=== PATIENT | male | born 1990 | race Caucasian/White ===

== ENCOUNTER 2023-09-05 09:05 | Observation (INO) | payer BC, SELFPAY ==
[2023-09-05] VITALS (16 sets, daily range): BP systolic 90–122; BP diastolic 60–72; PULSE 99–110; RESP 16–25; TEMP 36.6–37.4; O2SAT 92–97; BMI 29.7; BMI 28.8
--- NOTE | 2023-09-05 09:12 | ECG_ITS ---
APPROVED REPORT Exam: Resting ECG HR:102 bpm ECG Measurements Heart Rate 102 AXES DC 180 P 56 QRSd 110 QRS -7 QT 350 T 71 QTc 409 Conclusion SINUS TACHYCARDIA NONSPECIFIC ST & T-WAVE ABNORMALITY ABNORMAL RHYTHM ECG UNCONFIRMED REPORT Electronically signed by : Fam Pearson MD 09/05/2023 17:01:26
[2023-09-05] MEDS: LACTATED RINGERS 1000ML 1,000 ML 999 ML IV ×2 (09:20→10:13)
--- NOTE | 2023-09-05 09:21 | ED_ITS ---
Discharge Plan Disposition Patient Disposition: Admitted Condition: Fair Prescriptions Prescriptions: No Action omeprazole 20 mg capsule,delayed release(DR/EC) 20 mg PO ONCE Referrals Follow up/Referrals: Niranjan Frazier [Primary Care Provider] - See instructions Clinical Impressions Clinical Impression: DKA (diabetic ketoacidosis), Syncope, Supratherapeutic INR, Shortness of teresa ath, Pneumonia Discharge ED Provider: Torrie Gomez General Adult HPI General Chief complaint: Weakness Stated complaint: weakness and soa Time Seen by Provider: 09/05/23 09:13 Mode of Arrival: Ambulatory Source of Information: Patient and Relative Limitations: No Limitations Description of Symptoms (Recalled from ER Triage Doc. by RN): pt states he had a +flu test on 09/02. pt c/o weakness, nonproductive cough, burning in his lungs when he coughs, and a syncopal episode last night. pt states when he stands up he feels like I'm going to pass out. pt has a hx of an artificial aortic heart valve and insulin dependent DM. pt is on coumadin and reports his INR was 7.3 yesterday. Pt states he is suppose to have it tested again today. History of Present Illness HPI narrative: This patient is a 32-year-old male with a history of insulin-dependent diabetes, aortic valve stenosis status post mechanical replacement, chronic anticoagulation on Coumadin presenting to the emergency department for evaluation with concern for syncope, lightheadedness, shortness of air, and feeling unwell in the setting of flu. He states that he first started feeling sick on 09/01, and on 09/02 he tested positive for the flu. Since then, he has had weakness, nonproductive cough, burning in his lungs when he coughs, and poor oral intake. He has been drinking a lot of water, but has not been able to eat very much. He also had a syncopal episode last night. He states when he stands up, he feels like he is going to pass out. He has noted mechanical aortic valve and he is always able to hear it taking, however is much louder and more pronounced now. No other concerns noted at this time. Related Data Home Medications Medication Instructions Recorded Confirmed omeprazole 20 mg capsule,delayed 20 mg PO ONCE 08/08/17 release Allergies Allergy/AdvReac Type Severity Reaction Status Date / Time codeine Allergy Mild Verified 11/25/17 16:02 PFSH PFSH Disclaimer: The information contained in this section may have been updated after the patient was seen, as this information can be updated by other users. Social History Smoking Status: Never smoker alcohol intake: never substance use type: denies use current occupational status: employed Travel in the last 8 weeks: None ROS Obtained: Yes All systems reviewed & no additional complaints except as documented Physical Exam General General appearance: alert and anxious Comment: Uncomfortable appearing Head Head exam: atraumatic and normocephalic Eye Eye exam: Present normal appearance, PERRL and EOMI ENT ENT exam: Present mucous membranes dry and normal external ear exam Neck Neck exam: Present normal inspection, full ROM and trachea midline; Absent tenderness Chest Chest inspection: Present normal inspection and symmetric chest wall rise; Absent tenderness Respiratory Respiratory exam: Present accessory muscle use, prolonged expiratory phase and other (Tachypneic); Absent respiratory distress, wheezes or stridor Cardiovascular Cardiovascular exam: Present normal rhythm, tachycardia and other (Audible clicking of his mechanical valve heard from across the room.) Abdominal Exam Abdominal exam: Present soft; Absent distention, tenderness or guarding Extremities Exam Extremities exam: Present normal inspection, full ROM and normal capillary refill; Absent tenderness or edema Back Exam Back exam: Present normal inspection and full ROM; Absent tenderness Neurological Exam Neurological exam: Present alert, oriented X3, CN II-XII intact and normal gait; Absent motor sensory deficit Psychiatric Psychiatric exam: Present anxious Skin Skin exam: Present warm and dry Medical Decision Making Medical Records Medical records reviewed: Yes I reviewed the patient's medical records. Rashaad Inquiry Pt receiving controlled substance: No Vital Signs: 09/05/23 09:16 09/05/23 10:00 09/05/23 10:30 Temperature 98.1 F Temperature Source Oral Pulse Rate 99 H 106 H Pulse Rate [Left] 102 H Respiratory Rate 16 Blood Pressure 108/69 L 107/71 L Blood Pressure [Right Arm] 122/70 Blood Pressure Mean 82 Blood Pressure Mean [Right Arm] 87 Blood Pressure Source [Right Arm] Automatic Cuff Blood Pressure Position [Right Arm] Sitting 02 Sat by Pulse Oximetry 96 96 93 L Oxygen Delivery Method Room Air 09/05/23 11:16 09/05/23 11:40 Temperature Temperature Source Pulse Rate 104 H 104 H Pulse Rate [Left] Respiratory Rate Blood Pressure 106/64 L 102/68 L Blood Pressure [Right Arm] Blood Pressure Mean Blood Pressure Mean [Right Arm] Blood Pressure Source [Right Arm] Blood Pressure Position [Right Arm] 02 Sat by Pulse Oximetry 95 95 Oxygen Delivery Method Room Air Room Air Lab Data Lab results reviewed: Yes I reviewed the patient's lab results. Lab Results 09/05/23 09:22: VBG pH 7.24 L, VBG pCO2 37.1, VBG pO2 26.8 L, VBG HCO3 15.6 L, VBG Total CO2 16.8 L, VBG O2 Saturation 52.6, VBG Base Excess -11.7 L 09/05/23 09:25: WBC 7.6, RBC 5.40, Hgb 16.5, Hct 47.8, MCV 88.5, MCH 30.5, MCHC 34.5, RDW 13.7, Plt Count 136 L, MPV 8.5, Neut % (Auto) 77.0, Lymph % (Auto) 16.2, [place]field % (Auto) 5.9, Eos % (Auto) 0.3, Baso % (Auto) 0.5, Neut # (Auto) 5.9, Lymph # (Auto) 1.2, [place] # (Auto) 0.5, Eos # (Auto) 0.0, Baso # (Auto) 0.0, PT 90.0 H, INR 8.00 H, D-Dimer 0.62 H, Sodium 135 L, Potassium 4.3, Chloride 100, Carbon Dioxide 17 L, Anion Gap 22.3 H, BUN 12, Creatinine 0.90, Estimated Creat Clear 170, Estimated GFR 98, Est GFR ( Amer) 118, Glucose 239 H, Lactate 3.3 H, Uric Acid 5.3, Calcium 9.2, Total Bilirubin 1.4 H, AST 34, ALT 35, Alkaline Phosphatase 74, Lactate Dehydrogenase 494, Troponin I < 0.01, NT-Pro-B Natriuret Pep 3730 H, Total Protein 7.5, Albumin 4.3, Globulin 3.2, Albumin/Globulin Ratio 1.3, TSH 1.94, Thyroxine (T4) 5.8, Acetone Level Small 09/05/23 12:30: Troponin I 0.01 09/05/23 09:25 09/05/23 09:25 Orders (Tests/Meds): ED MEDICATIONS Generic Name Dose Route Start Last Admin Trade Name Freq PRN Reason Stop Dose Admin Dextrose 50 ml 09/05/23 10:04 Dextrose 50% 50ml Syringe (Crash Cart) IVP 10/05/23 10:03 NEEDED PRN Per DKA Protocol Insulin Human Regular 100 unit 101 mls @ 10.308 mls/hr 09/05/23 10:15 09/05/23 12:56 / Sodium Chloride IV 10/05/23 10:14 0.02 units/kg/hr .Q9H48M ELDA 2.5 mls/hr Titration Protocol 0.1 UNITS/KG/HR Sodium Chloride 1,000 mls @ 150 mls/hr 09/05/23 10:15 Sod Chlor 0.9% 1000ml Bag IV 10/05/23 10:14 .Q6H40M ELDA Dextrose/Sodium Chloride 1,000 mls @ 75 mls/hr 09/05/23 10:15 09/05/23 12:44 Dextrose 5%-0.9% Nacl Iv Soln IV 10/05/23 10:14 75 mls/hr .[id number] ELDA Administration Dextrose/Sodium Chloride 1,000 mls @ 125 mls/hr 09/05/23 10:15 09/05/23 12:59 Dextrose 5%-0.9% Nacl Iv Soln IV 10/05/23 10:14 125 mls/hr .Q8H ELDA Administration Azithromycin 500 mg/ Sodium 250 mls @ 250 mls/hr 09/05/23 13:30 09/05/23 12:52 Chloride IV 09/05/23 14:29 250 mls/hr ONCE ONE Administration Vancomycin/PEG/NADA/Lysine/Water 1.75 gm in 350 mls @ 175 mls/hr 09/05/23 13:00 Vancomycin 1.75gm/350ml (Peg) Premix IV 09/15/23 12:59 Q8H ELDA Miscellaneous 1 each 09/05/23 12:15 Vancomycin Consult Request NOTAPPLIC 10/05/23 12:14 CONSULT PHARMACY ELDA Discontinued Medications Generic Name Dose Route Start Last Admin Trade Name Freq PRN Reason Stop Dose Admin Lactated Ringer's 1,000 mls @ 999 mls/hr 09/05/23 09:19 09/05/23 09:20 Lactated Ringer's 1000 Ml Bag IV 09/05/23 10:19 999 mls/hr .Q1H1M ONE Administration Lactated Ringer's 1,000 mls @ 999 mls/hr 09/05/23 10:03 09/05/23 10:13 Lactated Ringer's 1000 Ml Bag IV 09/05/23 11:03 999 mls/hr .Q1H1M ONE Administration Cefepime HCl 2 gm/ Sodium 100 mls @ 200 mls/hr 09/05/23 12:30 09/05/23 12:34 Chloride IV 09/05/23 12:59 200 mls/hr ONCE ONE Administration Iopamidol 70 ml 09/05/23 11:11 09/05/23 11:12 Iopamidol-370 (76%);100ml Bottle IV 09/05/23 11:12 70 ml ONCE ONE Administration Sodium Chloride 50 ml 09/05/23 11:11 09/05/23 11:12 0.9 % Sodium Chloride 50 Ml Vial IV 09/05/23 11:12 50 ml ONCE ONE Administration Sodium Chloride 10 ml 09/05/23 11:11 09/05/23 11:12 Sodium Chloride 0.9% 10ml Syr (Rad Only) IV 09/05/23 11:12 10 ml ONCE ONE Administration ORDERS Category Date Time Status CTA Chest [CT angio chest PE protocol] Stat Cat Scan 09/05/23 10:38 Completed Cardiology Consult [Consult to Cardiology] [CONS] Cons 09/05/23 10:23 Active Routine POCUS Point of Care (ER Only) Stat Exams 09/05/23 09:21 Completed XR chest portable Stat Exams 09/05/23 10:08 Completed Acetone, Serum (Rapid) Q12H Lab 09/05/23 22:15 Ordered Acetone, Serum (Rapid) Q12H Lab 09/06/23 10:15 Ordered Acetone, Serum (Rapid) Stat Lab 09/05/23 09:25 Completed Basic Metabolic Panel Q12H Lab 09/06/23 02:15 Ordered Basic Metabolic Panel Q12H Lab 09/06/23 14:15 Ordered Basic Metabolic Panel Q12H Lab 09/07/23 02:15 Ordered Basic Metabolic Panel Q4H Lab 09/05/23 14:15 Ordered Basic Metabolic Panel Q4H Lab 09/05/23 18:15 Ordered Basic Metabolic Panel Q4H Lab 09/05/23 22:15 Ordered Brain Natriuretic Peptide Stat Lab 09/05/23 09:25 Completed Complete Blood Count Auto Diff Stat Lab 09/05/23 09:25 Completed Comprehensive Metabolic Panel Stat Lab 09/05/23 09:25 Completed D-Dimer Stat Lab 09/05/23 09:25 Completed Lactate Dehydrogenase Stat Lab 09/05/23 09:25 Completed Lactic Acid Stat Lab 09/05/23 09:25 Completed Prothrombin Time INR Stat Lab 09/05/23 09:25 Completed T4 (Thyroxine) Stat Lab 09/05/23 09:25 Completed TSH [Thyroid Stimulating Hormone] Stat Lab 09/05/23 09:25 Completed Troponin I Q3H Lab 09/05/23 12:30 Completed Troponin I Q3H Lab 09/05/23 15:30 Ordered Troponin I Stat Lab 09/05/23 09:25 Completed Uric Acid Stat Lab 09/05/23 09:25 Completed Blood Culture Stat Micro 09/05/23 11:29 Received Venous Blood Gas Stat RT 09/05/23 09:22 Completed CA echo doppler complete Stat Y 09/05/23 10:13 Completed ECG initial Besson Routine Y 09/05/23 09:12 Completed ECG Data Tracing #1: I reviewed this ECG and interpreted as documented below: Sinus tachycardia with a ventricular rate of [address] changes concerning for ischemia at this time. Motion artifact noted. ECG initial impression date: 09/05/23 ECG initial impression time: 09:14 Medical Decision Narrative: In summary, this patient is a 32-year-old male presenting to the Emergency Department for evaluation of shortness of breath, lightheadedness, general weakness, and syncope in the setting of influenza. Differential diagnoses considered include but are not limited to viral syndrome, dehydration, pn eumonia, ACS, dysrhythmia, PE, pleurisy, pericarditis, myocarditis, respiratory failure, DKA, HHS. Ruling out the most morbid conditions drove assessment. On exam, the patient is slightly tachycardic with audible mechanical valve heard from across the room. He appears very dry with delayed capillary refill and dry mucous membranes. Workup included broad lab evaluation including infectious, metabolic, and cardiac workup. Chest x-ray and EKG were also obtained. EKG demonstrates mild sinus tachycardia without acute ST elevations concerning for ischemia. Bedside ultrasound performed that did not demonstrate any significant pericardial effusion. No gross wall motion abnormality. On repeat exam, patient has some improvement in his color after administration of a bolus of IV fluids. He has improvement in his capillary refill. His labs are concerning for DKA with metabolic acidosis and an elevated anion gap of 22. Potassium is greater than 4 and blood glucose is 239. He also has mildly elevated lactic acid of 3.3. Fluid with sedation is ongoing with a second liter bolus at this time. I do not feel the full sepsis bolus is indicated given obesity as well as history of cardiac dysfunction. He does have an elevated BNP which is 3700. No gross signs of volume overload on clinical exam. He has mildly elevated D-dimer, for which CT PE protocol was ordered. INR is 8 without obvious sources of bleeding. Will advise holding coumadin but no indication for vitamin K/reversal at this time. I called and had an interactive discussion with Dr. Bowen with cardiology and ordered a formal echocardiogram to evaluate valve functionality to determine whether or not the patient will be appropriate to keep here for management of simple DKA or if he would require transfer to [facility] facility with cardiothoracic surgery given his history of valve replacement. Cardiology is to evaluate the patient. I independently interpreted CT scan and x-ray prior to the radiologist read and noted concerns for pneumonia. Please see their read for final interpretation. Given that the patient is very ill-appearing with DKA and recent influenza which predisposes him to MRSA pneumonia, he was given IV vancomycin, cefepime, and azithromycin. Fluid resuscitation is ongoing at this time. DKA protocol was initiated, and patient was placed on insulin drip. He did require initiation of dextrose given that his blood sugar is not significantly elevated. Cardiology reviewed patient's echo and noted that there is no concern for valvular dysfunction at this time, so the patient can stay here. Given this, I had an interactive discussion with the hospitalist who admitted the patient for further evaluation and management. Procedures Limited Ultrasound Indication:: Limited cardiac ultrasound Indication: Shortness of breath, syncope Identified cardiac views: [-Cardiac parasternal long axis] [-Cardiac parasternal short axis] [-Cardiac apical four-chamber] [-Cardiac subxiphoid] Findings: [-Cardiac activity present -Gross wall motion normal -Pericardial effusion absent -Right heart strain absent] Impression: -[From above] Images were saved to permanent archive The study was technically adequate CPT: 62295 This study was performed by me, and I personally interpreted all images/videos. Based on my clinical judgement, these images were adequate and did not necessitate further imaging. Critical Care Critical Care Time Critical Care Time: Yes Attestation: On 09/05/23, the high probability of a clinically significant, sudden or life threatening deterioration of the following system(s) (cardiovascular, respiratory, immunologic, endocrine) required my full and direct attention, intervention and personal management. The time I documented below is in addition to time spent performing reported procedures but includes the following listed in this critical care notation. Total Time Total Critical Care Time: 45
[2023-09-05 09:43] LABS: Basophils % 0.5 % (0.1-2.0); Eosinophils % 0.3 % (0.1-12.0); Hematocrit 47.8 % (42.0-52.0); Hemoglobin 16.5 g/dL (14.1-18.0); Lymphocytes # 1.2 K/mm3 (0.7-4.5); Lymphocytes % 16.2 % (10-50); Mean Corpuscular HGB Conc 34.5 g/dL (31.8-35.4); Mean Corpuscular Hemoglobin 30.5 pg (27.0-31.2); Mean Corpuscular Volume 88.5 fl (80-94); Mean Platelet Volume 8.5 fl (7.4-10.4); Monocytes # 0.5 K/mm3 (0.1-1.0); Monocytes % 5.9 % (1.7-9.3); Neutrophils # 5.9 K/mm3 (1.8-7.8); Platelet Count 136 K/mm3 (142-424); Red Cell Distribution Width 13.7 % (11.5-17.5); White Blood Count 7.6 K/mm3 (4.8-10.8)
--- NOTE | 2023-09-05 09:43 | PC.NURSE ---
RESPIRATORY NOTIFIED OF VBG
[2023-09-05 09:49] LABS: VBG Base Excess -11.7 mmol/L (-2.4-2.3); VBG HCO3 15.6 mmol/L (23-30); VBG Oxygen Saturation 52.6 % (50-70); VBG PCO2 37.1 mmol/L (35-51); VBG PH 7.24 mmol/L (7.31-7.41); VBG PO2 26.8 mmol/L (28-40); VBG Total CO2 16.8 mmol/L (23-27)
[2023-09-05 09:49] LABS: Chloride 100 mmol/L (98-107); Potassium 4.3 mmoL/L (3.5-5.1); Sodium 135 mmol/L (136-145)
[2023-09-05 09:52] LABS: Alanine Aminotransferase 35 U/L (12-78); Albumin Level 4.3 g/dl (3.5-5.0); Albumin/Globulin Ratio 1.3 (1.1-1.8); Alkaline Phosphatase 74 U/L (38-126); Anion Gap 22.3 mEq/L (5-15); Aspartate Amino Transferase 34 U/L (17-59); Bilirubin,Total 1.4 mg/dl (0.2-1.3); Blood Urea Nitrogen 12 mg/dl (9-20); Calcium 9.2 mg/dl (8.4-10.2); Carbon Dioxide 17 mmol/L (22.0-30.0); Creatinine Clearance Estimated 170 mL/min (50-200); Estimated Glomerular Filt Rate 98 ml/min (>60); GFR (African American) 118 ML/MIN (>60); Globulin 3.2 g/dL (1.3-3.2); Glucose 239 mg/dl (74-100); Total Protein,Serum 7.5 g/dl (6.3-8.2)
--- NOTE | 2023-09-05 09:55 | PC.NURSE ---
DR PEREZ AT BEDSIDE WITH US
[2023-09-05 09:59] LABS: Lactic Acid 3.3 mmol/L (0.7-2.1)
[2023-09-05 10:02] LABS: NT Pro Brain Natriuretic Pep. 3730 pg/mL (0-125)
[2023-09-05 10:04] LABS: Troponin I < 0.01 ng/ml (0.00-0.034)
--- NOTE | 2023-09-05 10:08 | XR_ITS ---
FINAL REPORT CLINICAL HISTORY: SOA FINDINGS: There is a vague opacity in the periphery of the right mid lung, may represent pneumonia. There is no evidence of effusion or pneumothorax. Patient is status post median sternotomy. Heart size is normal. IMPRESSION: Vague opacity right mid lung. Reviewed, Interpreted and Dictated by Luke Haq MD Transcribed by Karol Griffith Authenticated and [facility]
[2023-09-05 10:09] LABS: T4 (Thyroxine) 5.8 ug/dl (5.53-11.0)
--- NOTE | 2023-09-05 10:13 | CA_ITS ---
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 160.0 (50-130 cm/s) AO Peak GR. 10.20 mmHg AO Mean GR. 5.10 (<5 mmHg) AO VTI 23.5 (18-25 cm) Mitral Valve MV A Velocity 56.0 (40-130 cm/s) E/A Ratio 1.37 Pulmonary Valve PV Peak Velocity 256.0 (50-150 cm/s) Tricuspid Valve TR P. Velocity 303.00 cm/s Left Ventricle The left ventricle is normal size. The left ventricular systolic function is normal. The left ventricular ejection fraction is within the normal range. There is normal left ventricular wall thickness. There is normal LV segmental wall motion. The left ventricular diastolic function is normal. LVEF is 60%. Right Ventricle Right ventricle is mildly dilated. The right ventricular systolic function is normal. Atria The left atrium size is normal. The right atrium size is normal. There is no Doppler evidence of interatrial shunt. Aortic Valve s/p mechanical AVR. The AVR leaflets are not very well visualized to assess mobility. Peak velocity 1.6 m/s. Mean AV gradient is 5 mmHg. Peak AV gradient 10 mmHg. Acceleeration time 45 ms. Trace aortic regurgitation. Mitral Valve The mitral valve is normal in structure. There is no mitral valve regurgitation noted. Tricuspid Valve The tricuspid valve leaflets are thin and pliable. Trace tricuspid regurgitation. There is insufficient TR jet to estimate RVSP. Pulmonic Valve The pulmonary valve is normal in structure. Trace pulmonic regurgitation. Great Vessels The aortic root is not well visualized. IVC is normal in size and collapses >50% with inspiration. Pericardium There is no pericardial effusion. Other Information Study Quality: Technically Difficult Conclusion Technically difficult study due to poor accoustic windows. Normal biventricular systolic function. Mild RV dilation. s/p mechanical AVR. The AVR prosthesis is not well visualized, but spectral Doppler demonstrates acceptable transaortic gradients and acceleration time. No significant valvular stenosis or regurgitation in remaining valves. Electronically signed by : Yessenia Dow MD 09/05/2023 14:44:05
--- NOTE | 2023-09-05 10:20 | PC.NURSE ---
Dr. Gomez speaking with Dr. Bowen
[2023-09-05 10:22] LABS: Thyroid Stimulating Hormone 1.94 uIU/mL (0.465-4.68)
[2023-09-05] MEDS: INSULIN REGULAR, HUMAN 100 UNIT in 0.9 % SODIUM CHLORIDE 100 ML 10.3100000000000005 UNIT IV (10:25)
[2023-09-05 10:29] LABS: D-Dimer 0.62 ug/mL (0.0-0.5)
[2023-09-05 10:30] LABS: Lactate Dehydrogenase 494 U/L (313-618); Uric Acid 5.3 mg/dl (3.5-8.5)
[2023-09-05 10:37] LABS: Acetone, Serum (Rapid) Small (None Detect)
--- NOTE | 2023-09-05 10:38 | CT_ITS ---
FINAL REPORT TECHNIQUE: Postcontrast axial images of the chest were performed in a CTA protocol. This study was performed with techniques to keep radiation doses as low as reasonably achievable, (ALARA). Individualized dose reduction technique using automated exposure control or adjustment of mA and/or kV according to the patient's size were employed. CLINICAL HISTORY: chest pain, SOA, syncope, elevated dimer FINDINGS: The heart is normal in size. No pleural or pericardial effusion is identified. The thoracic aorta is normal in caliber with no focal aneurysm or dissection identified. There is no filling defect to suggest pulmonary embolism. There is extensive airspace disease throughout the lungs consistent with multifocal pneumonia. There is bilateral lower lobe and right upper lobe involvement noted. There are a few mildly enlarged, nonspecific lymph nodes with the largest in the right paratracheal region measuring 26 x 11 mm. Limited imaging of the upper abdomen demonstrates hepatosplenomegaly. IMPRESSION: No evidence for PE on this exam. Extensive airspace disease suspicious for pneumonia. Nonspecific adenopathy and splenomegaly. Reviewed, Interpreted and Dictated by Luke Haq MD Transcribed by Angie Ignacio Authenticated and [facility]
--- NOTE | 2023-09-05 10:55 | PC.NURSE ---
FS 208
[2023-09-05] MEDS: 0.9 % SODIUM CHLORIDE 50 ML VIAL IV (11:12)
[2023-09-05] MEDS: IOPAMIDOL-370 (76%);100ML BOTTLE 70 ML IV (11:12)
[2023-09-05] MEDS: SODIUM CHLORIDE 0.9% 10ML SYR (RAD ONLY) 10 ML IV (11:12)
--- NOTE | 2023-09-05 11:30 | PC.NURSE ---
Second set of blood cultures drawn and sent to lab
--- NOTE | 2023-09-05 12:00 | PC.NURSE ---
Shira from clinical scientist called to advise Dr. Bowen felt no need to transfer pt and that pt could be admitted here. Dr. Gomez notified.
--- NOTE | 2023-09-05 12:20 | EXP.PHA.CONS ---
Pharmacy Consult Date: 09/05/23 Time: 12:20 Referring provider: DR. PEREZ Reason for Consult:: VANCOMYCIN DOSING Allergies Allergy/AdvReac Type Severity Reaction Status Date / Time codeine Allergy Mild Verified 11/25/17 16:02 Home Medications Medication Instructions Recorded Confirmed Type omeprazole 20 mg capsule,delayed 20 mg PO ONCE 08/08/17 History release New Prescriptions to Start Prescriptions: Height: 1.85 m Weight: 102.058 kg Laboratory Results:: Laboratory Results - last 24 hr 09/05/23 09:22: VBG pH 7.24 L, VBG pCO2 37.1, VBG pO2 26.8 L, VBG HCO3 15.6 L, VBG Total CO2 16.8 L, VBG O2 Saturation 52.6, VBG Base Excess -11.7 L 09/05/23 09:25: WBC 7.6, RBC 5.40, Hgb 16.5, Hct 47.8, MCV 88.5, MCH 30.5, MCHC 34.5, RDW 13.7, Plt Count 136 L, MPV 8.5, Neut % (Auto) 77.0, Lymph % (Auto) 16.2, [place] % (Auto) 5.9, Eos % (Auto) 0.3, Baso % (Auto) 0.5, Neut # (Auto) 5.9, Lymph # (Auto) 1.2, [place] # (Auto) 0.5, Eos # (Auto) 0.0, Baso # (Auto) 0.0, PT 90.0 H, INR 8.00 H, D-Dimer 0.62 H, Sodium 135 L, Potassium 4.3, Chloride 100, Carbon Dioxide 17 L, Anion Gap 22.3 H, BUN 12, Creatinine 0.90, Estimated Creat Clear 170, Estimated GFR 98, Est GFR ( Amer) 118, Glucose 239 H, Lactate 3.3 H, Uric Acid 5.3, Calcium 9.2, Total Bilirubin 1.4 H, AST 34, ALT 35, Alkaline Phosphatase 74, Lactate Dehydrogenase 494, Troponin I < 0.01, NT-Pro-B Natriuret Pep 3730 H, Total Protein 7.5, Albumin 4.3, Globulin 3.2, Albumin/Globulin Ratio 1.3, TSH 1.94, Thyroxine (T4) 5.8, Acetone Level Small Assessment and Plan Assessment and plan all Dx Assessment and Plan for all problems:: Pharmacokinetic dosing service Objective: Patient: Floor: Age: 32 yo Serum creatinine: 0.90 mg/dL Height: 73.0 Inches Weight (kg): 102.1 Assessment: IBW (kg): 79.90 Dosing wt(kg): 102.1 Estimated Creatinine clearance (ml/min): 130 Clearance limited to 130 ml/min to reduce risk of overdosing. CRCL method: Cockcroft and Gault using ibw(default). Drug selected: Vancomycin Loading dose (mg): Vd (liters): 81.7 (factor used: 0.8 L/kg) Simon (hr-1): 0.112 Half life (hrs): 6.19 CLvanco=?? 9.150 L/hr Recommended dose: 1750 mg Interval: 8 hrs Infusion time (hrs): 2.0 Predicted peak (mcg/mL): 32.4 Predicted trough (mcg/mL): 16.55 Total body weight is being used for vancomycin dosing. Recommendations: Give Vancomycin 1750 mg q 8 hrs with an expected Cpeak of 32.4 mcg/ml and an expected Ctrough of 16.55 mcg/ml AUC 0-24 /NICOLASA Data: NICOLASA 0.5 mcg/mL:?? AUC/NICOLASA:? 1147.5 NICOLASA 1.0 mcg/mL:?? AUC/NICOLASA:? 573.8 --------- NICOLASA 1.5 mcg/mL:?? AUC/NICOLASA:? 382.5 NICOLASA 2.0 mcg/mL:?? AUC/NICOLASA:? 286.9 Thank you for the consult, will continue to follow. -THAIS DOTSOND
--- NOTE | 2023-09-05 12:30 | PC.NURSE ---
call made to CM for bed assignment
[2023-09-05] MEDS: CEFEPIME HCL 2 GM in 0.9 % SODIUM CHLORIDE 100 ML IV (12:34)
--- NOTE | 2023-09-05 12:37 | PC.NURSE ---
second trop drawn and sent to LAB
[2023-09-05] MEDS: Dextrose 5 % and 0.9 % NaCl 1,000 ML 75 ML IV (12:44)
[2023-09-05] MEDS: AZITHROMYCIN 500 MG in 0.9 % SODIUM CHLORIDE 250 ML 250 MG IV (12:52)
[2023-09-05] MEDS: Dextrose 5 % and 0.9 % NaCl 1,000 ML 125 ML IV (12:59)
--- NOTE | 2023-09-05 13:01 | PC.NURSE ---
1259 D5 NS increased to 125 ml/hr
[2023-09-05] MEDS: 0.9 % SODIUM CHLORIDE 1000ML 1,000 ML 150 ML IV (13:02)
--- NOTE | 2023-09-05 13:03 | PC.NURSE ---
D5NS stopped. insulin drip maintained the same.
[2023-09-05 13:04] LABS: Troponin I 0.01 ng/ml (0.00-0.034)
[2023-09-05 13:37] LABS: Reflex Lactic Add Lactic Reflex
--- NOTE | 2023-09-05 13:45 | P.CONCA_ITS ---
History of Present Illness History of Present Illness Consult date: 09/05/23 Requesting physician: Kris Garcia Chief complaint: DKA, mechanical aortic valve Additional Medical History:: 1. Insulin-dependent diabetes mellitus, treated for several years A. DKA, 09/05/2023 related to pneumonia and recent flu illness 2. Congenital aortic stenosis A. For surgery at age 2 to 3 months B. Ross procedure at age 11 C. History of mechanical aortic valve placement as an adult D. Chronic Coumadin therapy E. Echocardiogram, 09/05/2023, normal EF with normally functioning mechanical aortic valve. History of present illness: In summary, this patient is a 32-year-old male presenting to the Emergency Department for evaluation of shortness of breath, lightheadedness, general weakness, and syncope in the setting of influenza. Differential diagnoses considered include but are not limited to viral syndrome, dehydration, pneumonia, ACS, dysrhythmia, PE, pleurisy, pericarditis, myocarditis, respiratory failure, DKA, HHS. Ruling out the most morbid conditions drove assessment. On exam, the patient is slightly tachycardic with audible mechanical valve heard from across the room. He appears very dry with delayed capillary refill and dry mucous membranes. Workup included broad lab evaluation including infectious, metabolic, and cardiac workup. Chest x-ray and EKG were also obtained. EKG demonstrates mild sinus tachycardia without acute ST elevations concerning for ischemia. Bedside ultrasound performed that did not demonstrate any significant pericardial effusion. No gross wall motion abnormality. On repeat exam, patient has some improvement in his color after administration of a bolus of IV fluids. He has improvement in his capillary refill. His labs are concerning for DKA with metabolic acidosis and an elevated anion gap of 22. Potassium is greater than 4 and blood glucose is 239. He also has mildly elevated lactic acid of 3.3. Fluid with sedation is ongoing with a second liter bolus at this time. I do not feel the full sepsis bolus is indicated given obesity as well as history of cardiac dysfunction. He does have an elevated BNP which is 3700. No gross signs of volume overload on clinical exam. He has mildly elevated D-dimer, for which CT PE protocol was ordered. INR is 8 without obvious sources of bleeding. Will advise holding coumadin but no indication for vitamin K/reversal at this time. I called and had an interactive discussion with Dr. Jessi with cardiology and ordered a formal echocardiogram to evaluate valve functionality to determine whether or not the patient will be appropriate to keep here for management of simple DKA or if he would require transfer to another facility with cardiothoracic surgery given his history of valve replacement. Cardiology is to evaluate the patient. I independently interpreted CT scan and x-ray prior to the radiologist read and noted concerns for pneumonia. Please see their read for final interpretation. Given that the patient is very ill-appearing with DKA and recent influenza which predisposes him to MRSA pneumonia, he was given IV vancomycin, cefepime, and azithromycin. Fluid resuscitation is ongoing at this time. DKA protocol was initiated, and patient was placed on insulin drip. He did require initiation of dextrose given that his blood sugar is not significantly elevated. Cardiology reviewed patient's echo and noted that there is no concern for valvular dysfunction at this time, so the patient can stay here. Given this, I had an interactive discussion with the hospitalist who admitted the patient for further evaluation and management. The above per Dr. Torrie Gomez, ER physician The above events confirmed with the patient. Denies any chest pain, pressure or tightness. Non-smoker and nondrinker. Cardiology consulted to evaluate aortic valve for possible need to transfer if abnormal functioning. Echocardiogram today reveals normal ejection fraction with normally functioning mechanical aortic valve. [facility] Disclaimer: The information contained in this section may have been updated after the patient was seen, as this information can be updated by other users. Medical History (Updated 09/05/23 @ 13:51 by Tifafnie Alberto RN) Diabetes 1.5, managed as type 2 Surgical History (Updated 09/05/23 @ 13:52 by Tiffanie Alberto RN) Heart valve replaced Social History (Updated 09/05/23 @ 13:52 by Tiffanie Alberto, PATSY) Smoking Status: Never smoker alcohol intake: never substance use type: denies use current occupational status: employed Travel in the last 8 weeks: None Exam Data for Last 24 hours Vital signs and Labs for Last 24 Hours: Temp Pulse Resp BP Pulse Ox O2 Del Method 98.1 F 104 H 16 102/68 L 95 Room Air 09/05/23 09:16 09/05/23 11:40 09/05/23 09:16 09/05/23 11:40 09/05/23 11:40 09/05/23 11:40 Laboratory Results - last 24 hr 09/05/23 09:22: VBG pH 7.24 L, VBG pCO2 37.1, VBG pO2 26.8 L, VBG HCO3 15.6 L, VBG Total CO2 16.8 L, VBG O2 Saturation 52.6, VBG Base Excess -11.7 L 09/05/23 09:25: WBC 7.6, RBC 5.40, Hgb 16.5, Hct 47.8, MCV 88.5, MCH 30.5, MCHC 34.5, RDW 13.7, Plt Count 136 L, MPV 8.5, Neut % (Auto) 77.0, Lymph % (Auto) 16.2, [place] % (Auto) 5.9, Eos % (Auto) 0.3, Baso % (Auto) 0.5, Neut # (Auto) 5.9, Lymph # (Auto) 1.2, [place] # (Auto) 0.5, Eos # (Auto) 0.0, Baso # (Auto) 0.0, PT 90.0 H, INR 8.00 H, D-Dimer 0.62 H, Sodium 135 L, Potassium 4.3, Chloride 100, Carbon Dioxide 17 L, Anion Gap 22.3 H, BUN 12, Creatinine 0.90, Estimated Creat Clear 170, Estimated GFR 98, Est GFR ( Amer) 118, Glucose 239 H, Lactate 3.3 H, Uric Acid 5.3, Calcium 9.2, Total Bilirubin 1.4 H, AST 34, ALT 35, [place] Phosphatase 74, Lactate Dehydrogenase 494, Troponin I < 0.01, NT-Pro-B Natriuret Pep 3730 H, Total Protein 7.5, Albumin 4.3, Globulin 3.2, Albumin/Globulin Ratio 1.3, TSH 1.94, Thyroxine (T4) 5.8, Acetone Level Small 09/05/23 12:30: Troponin I 0.01 I & O for Last 24 hours: Intake & Output 09/03/23 09/04/23 09/05/23 09/06/23 11:59 11:59 11:59 11:59 Intake Total 23.797 / 23.797 Balance 23.797 / 23.797 Weight 225 lb 225 lb Constitutional Constitutional: no acute distress *Routine Respiratory Exam Respiratory: Present rales and rhonchi *Routine Cardiovascular Exam Cardiovascular: Present RRR and click Meds Home Medications and Allergies Home Medications Medication Instructions Recorded Confirmed Type omeprazole 20 mg capsule,delayed 20 mg PO ONCE 08/08/17 History release New Prescriptions to Start Prescriptions: Allergies Allergy/AdvReac Type Severity Reaction Status Date / Time luisaine Allergy Mild Verified 11/25/17 16:02 Assessment and Plan *Assessment and plan (1) Pneumonia: Status: Acute Qualifiers: Laterality: bilateral Lung location: unspecified part of lung Pneumonia type: due to unspecified organism Qualified Code(s): J18.9 - Pneumonia, unspecified organism Category: Medical Code(s): J18.9 - Pneumonia, unspecified organism (2) Shortness of breath: Status: Acute Category: Medical Code(s): R06.02 - Shortness of breath (3) Supratherapeutic INR: Status: Acute Category: Medical Code(s): R79.1 - Abnormal coagulation profile (4) Syncope: Status: Acute Qualifiers: Syncope type: unspecified Qualified Code(s): R55 - Syncope and collapse Category: Medical Code(s): R55 - Syncope and collapse (5) DKA (diabetic ketoacidosis): Status: Acute Qualifiers: Diabetes mellitus complication detail: without coma Diabetes mellitus type: other specified (including AISHWARYA) Qualified Code(s): E13.10 - Other specified diabetes mellitus with ketoacidosis without coma Category: Medical Code(s): E11.10 - Type 2 diabetes mellitus with ketoacidosis without coma (6) Hx of mechanical aortic valve replacement: Status: Acute Category: Surgical Code(s): Z95.2 - Presence of prosthetic heart valve (7) History of Coumadin therapy: Status: Acute Category: Medical Code(s): Z92.29 - Personal history of other drug therapy Plan 1. Pneumonia with shortness of breath and positive flu -Treatment per hospitalist 2. Syncope -Likely related to coughing with vasovagal etiology -Monitor on telemetry for arrhythmias -Troponins normal with normal EF on echo 3. Mechanical aortic valve, functioning appropriately -Supratherapeutic INR with plans to hold Coumadin and allow INR to drift down -Restart Coumadin when INR around 4 with goal of 2.5/3.5 4. IDDM with DKA, small acetone level and lactate at 3.3 (quickly improved to normal) and anion gap 22.3 dropped to 13.9 quickly -Defer to hospital Nothing further to add at this time. Please call if needed.
[2023-09-05 13:51] LABS: Coronavirus 19, PCR Not Detected (NotDetected); Influenza A, PCR Not Detected (NotDetected)
[2023-09-05 13:55] LABS: Lactic Acid Follow Up (RFLX 1) 1.8 mmol/L (0.7-2.1)
--- NOTE | 2023-09-05 14:07 | PC.NURSE ---
arrived by w/c from ED
[2023-09-05 14:39] LABS: POC Glucose,Bedside 82 (70-110)
[2023-09-05 14:39] LABS: Influenza B, PCR Detected (NotDetected)
[2023-09-05 14:46] LABS: Chloride 103 mmol/L (98-107); Sodium 135 mmol/L (136-145)
[2023-09-05 14:47] LABS: Potassium 3.9 mmoL/L (3.5-5.1)
[2023-09-05 14:50] LABS: Anion Gap 13.9 mEq/L (5-15); Blood Urea Nitrogen 11 mg/dl (9-20); Calcium 8.9 mg/dl (8.4-10.2); Carbon Dioxide 22 mmol/L (22.0-30.0); Creatinine Clearance Estimated 219 mL/min (50-200); Estimated Glomerular Filt Rate 131 ml/min (>60); GFR (African American) 158 ML/MIN (>60); Glucose 88 mg/dl (74-100)
--- NOTE | 2023-09-05 15:02 | PC.NURSE ---
Addendum entered by Rika Bernal RN 09/05/23 19:38: fluids increased to 124 r/t fsbs 91 [id number] Original Note: 1429 fsbs 82. fluids containing dextrose restarted at this time
[2023-09-05 15:36] LABS: POC Glucose,Bedside 104 (70-110)
[2023-09-05 15:50] LABS: Troponin I < 0.01 ng/ml (0.00-0.034)
[2023-09-05] MEDS: VANCOMYCIN/WATER FOR INJ (PEG) 1.75 GM/350 ML PIGGYBACK IV ×2 (16:40→23:33)
[2023-09-05 16:52] LABS: POC Glucose,Bedside 112 (70-110)
[2023-09-05 17:55] LABS: POC Glucose,Bedside 94 (70-110)
[2023-09-05 18:33] LABS: POC Glucose,Bedside 91 (70-110)
--- NOTE | 2023-09-05 18:36 | P.HP_ITS ---
History of Present Illness *Admission Date: 09/05/23 *Reason for visit:: Not feeling well, syncope *History of present illness: Patient is a 32-year-old male with past medical history of mechanical heart valve on Coumadin, diabetes mellitus who presents to the hospital due to feeling weakness lethargy, fatigue. Patient mention he has been feeling weak for the past week, he has not been holding up with hydration, he also mentions his mouth is dry. He otherwise denied fevers chills nausea vomiting diarrhea constipation dysuria. He mentions he was recently diagnosed with flu infection. He also mentions he passed out last night, he felt dizzy before passing out. [facility] Disclaimer: The information contained in this section may have been updated after the patient was seen, as this information can be updated by other users. Medical History (Updated 09/05/23 @ 13:51 by Tiffanie Alberto, RN) Diabetes 1.5, managed as type 2 Surgical History (Updated 09/05/23 @ 13:52 by Tiffanie Alberto, RN) Heart valve replaced Social History (Updated 09/05/23 @ 13:52 by Tiffanie Alberto, RN) Smoking Status: Never smoker alcohol intake: never substance use type: denies use current occupational status: employed Travel in the last 8 weeks: None Review of Systems Review of Systems Review of systems (narrative): as per [facility] Meds Home Medications and Allergies Home Medications Medication Instructions Recorded Confirmed Type omeprazole 20 mg capsule,delayed 20 mg PO ONCE 08/08/17 09/05/23 History release aspirin 81 mg chewable tablet 81 mg PO DAILY 09/05/23 09/05/23 History blood sugar diagnostic (FreeStyle 09/05/23 09/05/23 History Lite Strips) buspirone 5 mg tablet 5 mg PO DAILY 09/05/23 09/05/23 History dapagliflozin propaned 5 2 tab PO DAILY 09/05/23 09/05/23 History mg-metformin ER 1,000 mg tablet, ext rel 24hr (Xigduo XR) magnesium oxide 400 mg (241.3 mg 400 mg PO DAILY 09/05/23 09/05/23 History magnesium) tablet metoprolol succinate 50 mg 50 mg PO DAILY 09/05/23 09/05/23 History tablet,extended release 24 hr oseltamivir 75 mg capsule 75 mg PO BID 09/05/23 09/05/23 History rosuvastatin 20 mg tablet 20 mg PO HS 09/05/23 09/05/23 History sertraline 100 mg tablet 100 mg PO DAILY 09/05/23 09/05/23 History warfarin 1 mg tablet 1 mg PO DAILY 09/05/23 09/05/23 History warfarin 10 mg tablet 16 mg PO DAILY 09/05/23 09/05/23 History New Prescriptions to Start Prescriptions: Allergies Allergy/AdvReac Type Severity Reaction Status Date / Time codeine Allergy Mild Verified 11/25/17 16:02 Exam Data for Last 24 hours Vital signs and Labs for Last 24 Hours: Temp Pulse Resp BP Pulse Ox O2 Del Method 99.3 F 100 H 18 97/62 L 97 Room Air 09/05/23 16:00 09/05/23 18:00 09/05/23 18:00 09/05/23 18:00 09/05/23 18:00 09/05/23 18:00 Laboratory Results - last 24 hr 09/05/23 09:22: VBG pH 7.24 L, VBG pCO2 37.1, VBG pO2 26.8 L, VBG HCO3 15.6 L, VBG Total CO2 16.8 L, VBG O2 Saturation 52.6, VBG Base Excess -11.7 L 09/05/23 09:25: WBC 7.6, RBC 5.40, Hgb 16.5, Hct 47.8, MCV 88.5, MCH 30.5, MCHC 34.5, RDW 13.7, Plt Count 136 L, MPV 8.5, Neut % (Auto) 77.0, Lymph % (Auto) 16.2, [place] % (Auto) 5.9, Eos % (Auto) 0.3, Baso % (Auto) 0.5, Neut # (Auto) 5.9, Lymph # (Auto) 1.2, [place] # (Auto) 0.5, Eos # (Auto) 0.0, Baso # (Auto) 0.0, PT 90.0 H, INR 8.00 H, D-Dimer 0.62 H, Sodium 135 L, Potassium 4.3, Chloride 100, Carbon Dioxide 17 L, Anion Gap 22.3 H, BUN 12, Creatinine 0.90, Estimated Creat Clear 170, Estimated GFR 98, Est GFR ( Amer) 118, Glucose 239 H, Lactate 3.3 H, Uric Acid 5.3, Calcium 9.2, Total Bilirubin 1.4 H, AST 34, ALT 35, Alkaline Phosphatase 74, Lactate Dehydrogenase 494, Troponin I < 0.01, NT-Pro-B Natriuret Pep 3730 H, Total Protein 7.5, Albumin 4.3, Globulin 3.2, Albumin/Globulin Ratio 1.3, TSH 1.94, Thyroxine (T4) 5.8, Acetone Level Small 09/05/23 12:30: Troponin I 0.01 09/05/23 13:40: Lactate 1.8 09/05/23 13:47: SARS-CoV-2 (PCR) Not detected, Influenza A Untype (PCR) Not detected, Influenza Type B (PCR) Detected A 09/05/23 14:29: POC Glucose 82 09/05/23 14:35: Sodium 135 L, Potassium 3.9, Chloride 103, Carbon Dioxide 22, Anion Gap 13.9, BUN 11, Creatinine 0.70 D, Estimated Creat Clear 219, Estimated GFR 131, Est GFR ( Amer) 158 D, Glucose 88 D, Calcium 8.9, Troponin I < 0.01 09/05/23 15:28: POC Glucose 104 09/05/23 16:36: POC Glucose 112 H 09/05/23 17:44: POC Glucose 94 09/05/23 18:24: POC Glucose 91 I & O for Last 24 hours: Intake & Output 09/02/23 09/03/23 09/04/23 09/05/23 23:59 23:59 23:59 23:59 Intake Total 245.631 / 245.631 Balance 245.631 / 245.631 Weight 98.571 kg Constitutional Constitutional: no acute distress *Routine HEENT Exam Head: Present normocephalic Eye: Present EOMI and PERRL ENT: Present mucous membranes moist *Routine Neck Exam Neck: Present supple; Absent lymphadenopathy *Routine Respiratory Exam Respiratory: Present CTA bilaterally *Routine Cardiovascular Exam Cardiovascular: Present RRR *Routine Abdominal Exam Abdominal: Present soft and normoactive bowel sounds; Absent tenderness *Routine Rectal Exam Rectal:: deferred *Routine Genitalia Exam Genitalia:: deferred *Routine Extremities Exam Extremities: Absent cyanosis, clubbing or edema *Routine Skin Exam Skin: Present warm; Absent rash *Routine Neurological Exam Neurological: Present alert and oriented X3 Assessment and Plan *Assessment and plan (1) DKA (diabetic ketoacidosis): Status: Acute Qualifiers: Diabetes mellitus complication detail: without coma Diabetes mellitus type: other specified (including AISHWARYA) Qualified Code(s): E13.10 - Other specified diabetes mellitus with ketoacidosis without coma Category: Medical Code(s): E11.10 - Type 2 diabetes mellitus with ketoacidosis without coma (2) Syncope: Status: Acute Qualifiers: Syncope type: unspecified Qualified Code(s): R55 - Syncope and collapse Category: Medical Code(s): R55 - Syncope and collapse (3) Supratherapeutic INR: Status: Acute Category: Medical Code(s): R79.1 - Abnormal coagulation profile (4) Shortness of breath: Status: Acute Category: Medical Code(s): R06.02 - Shortness of breath (5) Pneumonia: Status: Acute Qualifiers: Laterality: bilateral Lung location: unspecified part of lung Pneumonia type: due to unspecified organism Qualified Code(s): J18.9 - Pneumonia, unspecified organism Category: Medical Code(s): J18.9 - Pneumonia, unspecified organism (6) Hx of mechanical aortic valve replacement: Status: Acute Category: Surgical Code(s): Z95.2 - Presence of prosthetic heart valve (7) History of Coumadin therapy: Status: Acute Category: Medical Code(s): Z92.29 - Personal history of other drug therapy Plan Patient is a 32-year-old male with past medical history of mechanical heart valve on Coumadin, diabetes mellitus who presents to the hospital due to feeling weakness lethargy, fatigue. Patient mention he has been feeling weak for the past week, he has not been holding up with hydration, he also mentions his mouth is dry. He otherwise denied fevers chills nausea vomiting diarrhea constipation dysuria. He mentions he was recently diagnosed with flu infection. He also mentions he passed out last night, he felt dizzy before passing out. Assessment Diabetes ketoacidosis Syncope Shortness of breath likely secondary to influenza type B, suspect pneumonia Supratherapeutic INR History of mechanical heart valve on Coumadin Plan Start on IV insulin, IV fluids per DKA protocol Frequent monitoring of BMP Monitor and replace electrolytes Started on empirical antibiotics with azithromycin, Rocephin Hold warfarin, patient's current INR is 8.0 Cardiology was consulted Monitor on cardiac mixer operator vacuum pan salt and replace electrolytes Patient denied using alcohol/tobacco abuse, okay for water intake while on insulin DVT prophylaxis-supratherapeutic INR, Coumadin on hold
[2023-09-05] MEDS: SERTRALINE 100MG TABLET 100 MG PO (19:00)
[2023-09-05 19:09] LABS: POC Glucose,Bedside 99 (70-110)
[2023-09-05 19:56] LABS: Anion Gap 10.5 mEq/L (5-15); Blood Urea Nitrogen 11 mg/dl (9-20); Calcium 8.7 mg/dl (8.4-10.2); Carbon Dioxide 23 mmol/L (22.0-30.0); Chloride 104 mmol/L (98-107); Creatinine Clearance Estimated 211 mL/min (50-200); Estimated Glomerular Filt Rate 131 ml/min (>60); GFR (African American) 158 ML/MIN (>60); Glucose 95 mg/dl (74-100); Potassium 3.5 mmoL/L (3.5-5.1); Sodium 134 mmol/L (136-145)
[2023-09-05 20:07] LABS: POC Glucose,Bedside 104 (70-110)
[2023-09-05] MEDS: OSELTAMIVIR 75MG CAPSULE 75 MG PO (20:51)
[2023-09-05] MEDS: METOPROLOL SUCCINATE XL 50MG TABLET 50 MG PO (20:51)
[2023-09-05] MEDS: BUSPIRONE HCL 5 MG TABLET PO (21:11)
[2023-09-05] MEDS: MAGNESIUM OXIDE 400MG TABLET 400 MG PO (21:11)
[2023-09-05] MEDS: PANTOPRAZOLE 40MG TABLET 40 MG PO (21:11)
[2023-09-05 22:49] LABS: Acetone, Serum (Rapid) Moderate (None Detect)
--- NOTE | 2023-09-05 23:04 | PC.NURSE ---
ROUNDED ON PT AT 200. PT REFUSED BATH, GAVE PT SNACKS.
[2023-09-05 23:44] LABS: POC Glucose,Bedside 153 (70-110)
[2023-09-06] VITALS (7 sets, daily range): BP systolic 103–118; BP diastolic 57–67; PULSE 90–110; RESP 17; TEMP 36.7–37.3; O2SAT 91–97; BMI 29.7
--- NOTE | 2023-09-06 05:19 | PC.NURSE ---
pt has had a great night. Patient has ate and drank with no nausea. Patient has not complained of pain or dizziness this shift. No other issues this shift
[2023-09-06] MEDS: humaLOG 100 UNITS/ML 3ML VIAL (SSI) SQ ×2 (05:47→12:05)
[2023-09-06 05:53] LABS: POC Glucose,Bedside 152 (70-110)
[2023-09-06 07:18] LABS: Potassium 3.5 mmoL/L (3.5-5.1); Sodium 133 mmol/L (136-145)
[2023-09-06 07:19] LABS: Chloride 103 mmol/L (98-107)
[2023-09-06 07:21] LABS: Anion Gap 14.5 mEq/L (5-15); Blood Urea Nitrogen 12 mg/dl (9-20); Carbon Dioxide 19 mmol/L (22.0-30.0); Creatinine Clearance Estimated 218 mL/min (50-200); Estimated Glomerular Filt Rate 131 ml/min (>60); GFR (African American) 158 ML/MIN (>60)
[2023-09-06 07:22] LABS: Calcium 8.4 mg/dl (8.4-10.2); Glucose 133 mg/dl (74-100)
[2023-09-06 07:59] LABS: INR 7.53 (0.9-1.1); Prothrombin Time 71.3 seconds (10.1-12.5)
[2023-09-06] MEDS: MAGNESIUM OXIDE 400MG TABLET 400 MG PO (10:00)
[2023-09-06] MEDS: OSELTAMIVIR 75MG CAPSULE 75 MG PO ×2 (10:00→20:29)
[2023-09-06] MEDS: BUSPIRONE HCL 5 MG TABLET PO (10:01)
[2023-09-06] MEDS: SERTRALINE 100MG TABLET 100 MG PO (10:01)
[2023-09-06] MEDS: METFORMIN 500MG TABLET 1000 MG PO ×2 (11:58→17:06)
[2023-09-06] MEDS: INSULIN GLARGINE 100 UNITS/ML 3ML FLEXPEN 30 UNIT SQ ×2 (11:58→20:30)
[2023-09-06] MEDS: ASPIRIN 81MG CHEWABLE TABLET 81 MG PO (11:58)
[2023-09-06 12:10] LABS: POC Glucose,Bedside 175 (70-110)
--- NOTE | 2023-09-06 12:38 | PC.NURSE ---
[address] Garcia face to face that pt called out for assistance reporting a nose bleed. pt currently has tissues in nostril applying pressure. nno
--- NOTE | 2023-09-06 13:47 | HMH.PHAINT1 ---
Pharmacy Intervention Comments: MEDICATION RECONCILIATION COMPLETED ON PATIENT USING EXTERNAL FILL HISTORY FROM PHARMACY. -NATHAN ROD, THAISD
[2023-09-06 14:24] LABS: Chloride 104 mmol/L (98-107); Potassium 3.4 mmoL/L (3.5-5.1); Sodium 133 mmol/L (136-145)
[2023-09-06 14:27] LABS: Anion Gap 11.4 mEq/L (5-15); Blood Urea Nitrogen 12 mg/dl (9-20); Calcium 8.4 mg/dl (8.4-10.2); Carbon Dioxide 21 mmol/L (22.0-30.0); Creatinine Clearance Estimated 254 mL/min (50-200); Estimated Glomerular Filt Rate 156 ml/min (>60); GFR (African American) 189 ML/MIN (>60); Glucose 151 mg/dl (74-100)
[2023-09-06 17:17] LABS: POC Glucose,Bedside 120 (70-110)
--- NOTE | 2023-09-06 17:41 | PC.NURSE ---
Pt is a/o x 4 and is resting in his room at this time using his cell phone. pt was able to ambulate to shower prior to lunch and was able to take a shower. lung sounds at this time have crackles in jessica bases and slightly diminished in the right lung. bowel sounds are active in all quads. pt had a nose bleed at lunch time which resolved without intervention. md notified of start and stop of bleeding. nad noted. pt has family at bedside at this time. Toan in pharmacy spoke with md about restarting abx for pt pneumonia as pt dc was delayed. abx not reordered at this time.
--- NOTE | 2023-09-06 18:06 | EXP.PN ---
Subjective *Date: 09/06/23 *Time: 18:06 Interval history: patient was seen and evaluated at the bedside. No reported acute events overnight, denies chest pain, shortness of breath, nausea, vomiting, abdominal pain. Exam Data for Last 24 hours Vital signs and Labs for Last 24 Hours: Temp Pulse Resp BP Pulse Ox O2 Del Method 98.3 F 94 H 17 118/67 97 Room Air 09/06/23 15:23 09/06/23 15:23 09/06/23 15:23 09/06/23 15:23 09/06/23 15:23 09/06/23 17:07 Laboratory Results - last 24 hr 09/05/23 18:24: POC Glucose 91 09/05/23 18:25: Sodium 134 L, Potassium 3.5, Chloride 104, Carbon Dioxide 23, Anion Gap 10.5, BUN 11, Creatinine 0.70, Estimated Creat Clear 211, Estimated GFR 131, Est GFR ( Amer) 158, Glucose 95, Calcium 8.7 09/05/23 18:57: POC Glucose 99 09/05/23 20:00: POC Glucose 104 09/05/23 22:14: Acetone Level Moderate 09/05/23 23:37: POC Glucose 153 H 09/06/23 05:43: POC Glucose 152 H 09/06/23 06:21: PT 71.3 H, INR 7.53 H, Sodium 133 L, Potassium 3.5, Chloride 103, Carbon Dioxide 19 L, Anion Gap 14.5, BUN 12, Creatinine 0.70, Estimated Creat Clear 218, Estimated GFR 131, Est GFR ( Amer) 158, Glucose 133 H D, Calcium 8.4 09/06/23 11:59: POC Glucose 175 H 09/06/23 14:09: Sodium 133 L, Potassium 3.4 L, Chloride 104, Carbon Dioxide 21 L, Anion Gap 11.4, BUN 12, Creatinine 0.60 L, Estimated Creat Clear 254, Estimated GFR 156, Est GFR ( Amer) 189, Glucose 151 H, Calcium 8.4 09/06/23 17:07: POC Glucose 120 H I & O for Last 24 hours: Intake & Output 09/03/23 09/04/23 09/05/23 09/06/23 23:59 23:59 23:59 23:59 Intake Total 598.631 / 5099.961 7571 / 1370 Output Total 450 / 950 1200 / 1200 Balance 148.631 / 298.631 170 / 170 Weight 98.571 kg 101.741 kg Constitutional Constitutional: no acute distress *Routine HEENT Exam Head: Present normocephalic Eye: Present EOMI and PERRL ENT: Present mucous membranes moist *Routine Neck Exam Neck: Present supple; Absent lymphadenopathy *Routine Respiratory Exam Respiratory: Present CTA bilaterally *Routine Cardiovascular Exam Cardiovascular: Present RRR *Routine Abdominal Exam Abdominal: Present soft and normoactive bowel sounds; Absent tenderness *Routine Extremities Exam Extremities: Absent cyanosis, clubbing or edema *Routine Skin Exam Skin: Present warm; Absent rash *Routine Neurological Exam Neurological: Present alert and oriented X3 Assessment and Plan *Assessment and plan (1) DKA (diabetic ketoacidosis): Status: Acute Qualifiers: Diabetes mellitus complication detail: without coma Diabetes mellitus type: other specified (including AISHWARYA) Qualified Code(s): E13.10 - Other specified diabetes mellitus with ketoacidosis without coma Category: Medical Code(s): E11.10 - Type 2 diabetes mellitus with ketoacidosis without coma (2) Syncope: Status: Acute Qualifiers: Syncope type: unspecified Qualified Code(s): R55 - Syncope and collapse Category: Medical Code(s): R55 - Syncope and collapse (3) Supratherapeutic INR: Status: Acute Category: Medical Code(s): R79.1 - Abnormal coagulation profile (4) Shortness of breath: Status: Acute Category: Medical Code(s): R06.02 - Shortness of breath (5) Pneumonia: Status: Acute Qualifiers: Laterality: bilateral Lung location: unspecified part of lung Pneumonia type: due to unspecified organism Qualified Code(s): J18.9 - Pneumonia, unspecified organism Category: Medical Code(s): J18.9 - Pneumonia, unspecified organism (6) Hx of mechanical aortic valve replacement: Status: Acute Category: Surgical Code(s): Z95.2 - Presence of prosthetic heart valve (7) History of Coumadin therapy: Status: Acute Category: Medical Code(s): Z92.29 - Personal history of other drug therapy Plan Patient is a 32-year-old male with past medical history of mechanical heart valve on Coumadin, diabetes mellitus who presents to the hospital due to feeling weakness lethargy, fatigue. Patient mention he has been feeling weak for the past week, he has not been holding up with hydration, he also mentions his mouth is dry. He otherwise denied fevers chills nausea vomiting diarrhea constipation dysuria. He mentions he was recently diagnosed with flu infection. He also mentions he passed out last night, he felt dizzy before passing out. Assessment Diabetes ketoacidosis - improved Syncope Shortness of breath likely secondary to influenza type B, suspect pneumonia Supratherapeutic INR History of mechanical heart valve on Coumadin Plan ok to start Diet Frequent monitoring of BMP Monitor and replace electrolytes Started on empirical antibiotics with azithromycin, Rocephin Hold warfarin, patient's current INR is 8.0, monitor INR, he had nasal bleed, monitor inpatient for CBC monitoring Cardiology was consulted Monitor on cardiac wafer slicer and replace electrolytes Patient denied using alcohol/tobacco abuse, okay for water intake while on insulin DVT prophylaxis-supratherapeutic INR, Coumadin on hold
[2023-09-06 19:06] LABS: Chloride 94 mmol/L (98-107); Sodium 121 mmol/L (136-145)
[2023-09-06 19:07] LABS: Potassium 3.7 mmoL/L (3.5-5.1)
[2023-09-06 19:09] LABS: Blood Urea Nitrogen 4 mg/dl (9-20); Creatinine Clearance Estimated 218 mL/min (50-200); Estimated Glomerular Filt Rate 131 ml/min (>60); GFR (African American) 158 ML/MIN (>60)
[2023-09-06 19:10] LABS: Anion Gap 4.7 mEq/L (5-15); Calcium 7.1 mg/dl (8.4-10.2); Carbon Dioxide 26 mmol/L (22.0-30.0); Glucose 122 mg/dl (74-100)
[2023-09-06] MEDS: PANTOPRAZOLE 40MG TABLET 40 MG PO (20:29)
[2023-09-06] MEDS: ATORVASTATIN 40MG TABLET 40 MG PO (20:29)
[2023-09-06] MEDS: METOPROLOL SUCCINATE XL 50MG TABLET 50 MG PO (20:29)
[2023-09-06] MEDS: BENZONATATE 100MG CAPSULE 100 MG PO (20:35)
[2023-09-06 20:40] LABS: POC Glucose,Bedside 143 (70-110)
[2023-09-07] VITALS: BP 120/70; PULSE 96; RESP 18; TEMP 36.8; O2SAT 90
[2023-09-07 02:21] LABS: Anion Gap 9.1 mEq/L (5-15); Blood Urea Nitrogen 11 mg/dl (9-20); Calcium 8.2 mg/dl (8.4-10.2); Carbon Dioxide 25 mmol/L (22.0-30.0); Chloride 104 mmol/L (98-107); Creatinine Clearance Estimated 305 mL/min (50-200); Estimated Glomerular Filt Rate 193 ml/min (>60); GFR (African American) 233 ML/MIN (>60); Glucose 100 mg/dl (74-100); Potassium 3.1 mmoL/L (3.5-5.1); Sodium 135 mmol/L (136-145)
[2023-09-07 04:00] VITALS: BP 116/67; PULSE 89; RESP 17; TEMP 37.2; O2SAT 90; BMI 29.3
--- NOTE | 2023-09-07 05:31 | PC.NURSE ---
Patient has had a good shift. Has been able to rest. Did have one more small nosebleed before bed but has not had any more through the night. That nose bleed lasted 2min. with no significant loss of blood. Patient did complain of cough early in the shift. FLIGHT INSTRUCTOR notified and orders were placed. No other issues noted
[2023-09-07] MEDS: METFORMIN 500MG TABLET 1000 MG PO (06:36)
[2023-09-07 07:09] LABS: Basophils # 0.1 K/mm3 (0-0.2); Basophils % 0.8 % (0.1-2.0); Eosinophils % 0.5 % (0.1-12.0); Hematocrit 34.7 % (42.0-52.0); Hemoglobin 12.7 g/dL (14.1-18.0); Lymphocytes # 1.7 K/mm3 (0.7-4.5); Lymphocytes % 20.5 % (10-50); Mean Corpuscular HGB Conc 36.5 g/dL (31.8-35.4); Mean Corpuscular Hemoglobin 30.6 pg (27.0-31.2); Mean Corpuscular Volume 83.9 fl (80-94); Mean Platelet Volume 8.9 fl (7.4-10.4); Monocytes # 0.5 K/mm3 (0.1-1.0); Monocytes % 6.2 % (1.7-9.3); Neutrophils # 5.9 K/mm3 (1.8-7.8); Platelet Count 155 K/mm3 (142-424); Red Blood Count 4.13 M/mm3 (4.60-6.20); Red Cell Distribution Width 13.2 % (11.5-17.5); White Blood Count 8.2 K/mm3 (4.8-10.8)
[2023-09-07 07:10] LABS: Chloride 103 mmol/L (98-107); Potassium 3.1 mmoL/L (3.5-5.1); Sodium 134 mmol/L (136-145)
[2023-09-07 07:13] LABS: Blood Urea Nitrogen 13 mg/dl (9-20); Creatinine Clearance Estimated 376 mL/min (50-200); Estimated Glomerular Filt Rate 249 ml/min (>60); GFR (African American) 302 ML/MIN (>60); INR 2.53 (0.9-1.1); Prothrombin Time 25.7 seconds (10.1-12.5)
[2023-09-07 07:14] LABS: Anion Gap 9.1 mEq/L (5-15); Calcium 8.1 mg/dl (8.4-10.2); Carbon Dioxide 25 mmol/L (22.0-30.0); Glucose 99 mg/dl (74-100)
[2023-09-07 07:27] VITALS: BP 94/51; PULSE 89; RESP 18; TEMP 36.8; O2SAT 92
[2023-09-07] MEDS: ASPIRIN 81MG CHEWABLE TABLET 81 MG PO (09:02)
[2023-09-07] MEDS: BUSPIRONE HCL 5 MG TABLET PO (09:02)
[2023-09-07] MEDS: MAGNESIUM OXIDE 400MG TABLET 400 MG PO (09:02)
[2023-09-07] MEDS: OSELTAMIVIR 75MG CAPSULE 75 MG PO (09:02)
[2023-09-07] MEDS: DAPAGLIFLOZIN PROPANEDIOL 10 MG TABLET PO (09:02)
[2023-09-07] MEDS: INSULIN GLARGINE 100 UNITS/ML 3ML FLEXPEN 30 UNIT SQ (09:03)
[2023-09-07] MEDS: SERTRALINE 100MG TABLET 100 MG PO (09:03)
--- NOTE | 2023-09-07 10:08 | P.DS_ITS ---
General Admission date:: 09/05/23 Discharge date: 09/07/23 HPI HPI HPI: Patient is a 32-year-old male with past medical history of mechanical heart valve on Coumadin, diabetes mellitus who presents to the hospital due to feeling weakness lethargy, fatigue. Patient mention he has been feeling weak for the past week, he has not been holding up with hydration, he also mentions his mouth is dry. He otherwise denied fevers chills nausea vomiting diarrhea constipation dysuria. He mentions he was recently diagnosed with flu infection. He also mentions he passed out last night, he felt dizzy before passing out. Hospital Course Hospital Course Hospital Course: Patient was seen and evaluated at the bedside on the day of discharge. Patient is stable for discharge. Patient wishes to be discharged. All patient questions were answered and patient was given time to ask questions. Patient was discharged in stable condition. Patient understands that she can return to ER in case of any sudden changes in health. Total time spent on DC - 38 mins Patient is a 32-year-old male with past medical history of mechanical heart valve on Coumadin, diabetes mellitus who presents to the hospital due to feeling weakness lethargy, fatigue. Patient mention he has been feeling weak for the past week, he has not been holding up with hydration, he also mentions his mouth is dry. He otherwise denied fevers chills nausea vomiting diarrhea constipation dysuria. He mentions he was recently diagnosed with flu infection. He also mentions he passed out last night, he felt dizzy before passing out. Assessment Diabetes ketoacidosis - improved Syncope Shortness of breath likely secondary to influenza type B, suspect pneumonia Supratherapeutic INR History of mechanical heart valve on Coumadin stable for discharge, pulmonary opacities are most likely from Influenza B. continue tamiflue at DC Exam Data for Last 24 hours Vital signs and Labs for Last 24 Hours: Temp Pulse Resp BP Pulse Ox O2 Del Method 98.3 F 89 18 94/51 L 92 L Room Air 09/07/23 07:27 09/07/23 07:27 09/07/23 07:27 09/07/23 07:27 09/07/23 07:27 09/07/23 08:36 Laboratory Results - last 24 hr 09/06/23 11:59: POC Glucose 175 H 09/06/23 14:09: Sodium 133 L, Potassium 3.4 L, Chloride 104, Carbon Dioxide 21 L , Anion Gap 11.4, BUN 12, Creatinine 0.60 L, Estimated Creat Clear 254, Estimated GFR 156, Est GFR ( Amer) 189, Glucose 151 H, Calcium 8.4 09/06/23 17:07: POC Glucose 120 H 09/06/23 18:30: Sodium 121 L, Potassium 3.7, Chloride 94 L, Carbon Dioxide 26, Anion Gap 4.7 L, BUN 4 L D, Creatinine 0.70, Estimated Creat Clear 218, Estimated GFR 131, Est GFR ( Amer) 158, Glucose 122 H, Calcium 7.1 L 09/06/23 20:31: POC Glucose 143 H 09/07/23 02:05: Sodium 135 L, Potassium 3.1 L, Chloride 104, Carbon Dioxide 25, Anion Gap 9.1, BUN 11 D, Creatinine 0.50 L D, Estimated Creat Clear 305 H, Estimated GFR 193, Est GFR ( Amer) 233 D, Glucose 100, Calcium 8.2 L 09/07/23 06:15: WBC 8.2, RBC 4.13 L, Hgb 12.7 L, Hct 34.7 L, MCV 83.9, MCH 30.6, MCHC 36.5 H, RDW 13.2, Plt Count 155, MPV 8.9, Neut % (Auto) 72.0, Lymph % (Auto) 20.5, [place] % (Auto) 6.2, Eos % (Auto) 0.5, Baso % (Auto) 0.8, Neut # (Auto) 5.9, Lymph # (Auto) 1.7, [place] # (Auto) 0.5, Eos # (Auto) 0.0, Baso # (Auto) 0.1, PT 25.7 H, INR 2.53 H, Sodium 134 L, Potassium 3.1 L, Chloride 103, Carbon Dioxide 25, Anion Gap 9.1, BUN 13, Creatinine 0.40 L, Estimated Creat Clear 376 H, Estimated GFR 249, Est GFR ( Amer) 302 D, Glucose 99, Calcium 8.1 L I & O for Last 24 hours: Intake & Output 09/04/23 09/05/23 09/06/23 09/07/23 23:59 23:59 23:59 23:59 Intake Total 598.631 / 5240.301 0669 / 1870 740 / 740 Output Total 450 / 950 1200 / 1200 0 / 0 Balance 148.631 / 298.631 170 / 670 740 / 740 Weight 98.571 kg 101.741 kg 100.38 kg Constitutional Constitutional: no acute distress *Routine HEENT Exam Head: Present normocephalic Eye: Present EOMI and PERRL ENT: Present mucous membranes moist *Routine Neck Exam Neck: Present supple; Absent lymphadenopathy *Routine Respiratory Exam Respiratory: Present CTA bilaterally *Routine Cardiovascular Exam Cardiovascular: Present RRR *Routine Abdominal Exam Abdominal: Present soft and normoactive bowel sounds; Absent tenderness *Routine Extremities Exam Extremities: Absent cyanosis, clubbing or edema *Routine Skin Exam Skin: Present warm; Absent rash *Routine Neurological Exam Neurological: Present alert and oriented X3 Results Data Completed and Pending Labs on day of discharge: Labs from last 24 hours 09/07/23 09/07/23 09/06/23 06:15 02:05 20:31 WBC 8.2 RBC 4.13 L Hgb 12.7 L Hct 34.7 L MCV 83.9 MCH 30.6 MCHC 36.5 H RDW 13.2 Plt Count 155 MPV 8.9 Neut % (Auto) 72.0 Lymph % (Auto) 20.5 [place] % (Auto) 6.2 Eos % (Auto) 0.5 Baso % (Auto) 0.8 Neut # (Auto) 5.9 Lymph # (Auto) 1.7 [place] # (Auto) 0.5 Eos # (Auto) 0.0 Baso # (Auto) 0.1 PT 25.7 H INR 2.53 H Sodium 134 L 135 L Potassium 3.1 L 3.1 L Chloride 103 104 Carbon Dioxide 25 25 Anion Gap 9.1 9.1 BUN 13 11 D Creatinine 0.40 L 0.50 L D Estimated Creat Clear 376 H 305 H Estimated GFR 249 193 Est GFR ( Amer) 302 D 233 D Glucose 99 100 POC Glucose 143 H Calcium 8.1 L 8.2 L 09/06/23 09/06/23 09/06/23 18:30 17:07 14:09 WBC RBC Hgb Hct MCV MCH MCHC RDW Plt Count MPV Neut % (Auto) Lymph % (Auto) [place] % (Auto) Eos % (Auto) Baso % (Auto) Neut # (Auto) Lymph # (Auto) [place] # (Auto) Eos # (Auto) Baso # (Auto) PT INR Sodium 121 L 133 L Potassium 3.7 3.4 L Chloride 94 L 104 Carbon Dioxide 26 21 L Anion Gap 4.7 L 11.4 BUN 4 L D 12 Creatinine 0.70 0.60 L Estimated Creat Clear 218 254 Estimated GFR 131 156 Est GFR ( Amer) 158 189 Glucose 122 H 151 H POC Glucose 120 H Calcium 7.1 L 8.4 09/06/23 11:59 WBC RBC Hgb Hct MCV MCH MCHC RDW Plt Count MPV Neut % (Auto) Lymph % (Auto) [place] % (Auto) Eos % (Auto) Baso % (Auto) Neut # (Auto) Lymph # (Auto) [place] # (Auto) Eos # (Auto) Baso # (Auto) PT INR Sodium Potassium Chloride Carbon Dioxide Anion Gap BUN Creatinine Estimated Creat Clear Estimated GFR Est GFR ( Amer) Glucose POC Glucose 175 H Calcium DS: Diagnosis Discharge Diagnosis (1) DKA (diabetic ketoacidosis): Status: Acute Code(s): E11.10 - Type 2 diabetes mellitus with ketoacidosis without coma Qualifiers: Diabetes mellitus complication detail: without coma Diabetes mellitus type: other specified (including AISHWARYA) Qualified Code(s): E13.10 - Other specified diabetes mellitus with ketoacidosis without coma (2) Syncope: Status: Acute Code(s): R55 - Syncope and collapse Qualifiers: Syncope type: unspecified Qualified Code(s): R55 - Syncope and collapse (3) Supratherapeutic INR: Status: Acute Code(s): R79.1 - Abnormal coagulation profile (4) Shortness of breath: Status: Acute Code(s): R06.02 - Shortness of breath (5) Pneumonia: Status: Acute Code(s): J18.9 - Pneumonia, unspecified organism Qualifiers: Laterality: bilateral Lung location: unspecified part of lung Pneumonia type: due to unspecified organism Qualified Code(s): J18.9 - Pneumonia, unspecified organism (6) Hx of mechanical aortic valve replacement: Status: Acute Code(s): Z95.2 - Presence of prosthetic heart valve (7) History of Coumadin therapy: Status: Acute Code(s): Z92.29 - Personal history of other drug therapy Meds Home Medications and Allergies Home Medications Medication Instructions Recorded Confirmed Type omeprazole 20 mg capsule,delayed 20 mg PO DAILY 08/08/17 09/06/23 History release aspirin 81 mg chewable tablet 81 mg PO DAILY 09/05/23 09/05/23 History blood sugar diagnostic (FreeStyle 09/05/23 09/05/23 History Lite Strips) buspirone 5 mg tablet 5 mg PO DAILY 09/05/23 09/05/23 History dapagliflozin propaned 5 2 tab PO DAILY 09/05/23 09/05/23 History mg-metformin ER 1,000 mg tablet, ext rel 24hr (Xigduo XR) insulin glargine 100 unit/mL (3 30 unit SQ BID 09/05/23 09/05/23 History mL) subcutaneous pen magnesium oxide 400 mg (241.3 mg 400 mg PO DAILY 09/05/23 09/05/23 History magnesium) tablet metoprolol succinate 50 mg 50 mg PO HS 09/05/23 09/06/23 History tablet,extended release 24 hr oseltamivir 75 mg capsule 75 mg PO BID 09/05/23 09/05/23 History rosuvastatin 20 mg tablet 20 mg PO HS 09/05/23 09/05/23 History sertraline 100 mg tablet 100 mg PO DAILY 09/05/23 09/05/23 History warfarin 1 mg tablet 1 mg PO DAILY 09/05/23 09/05/23 History warfarin 10 mg tablet 15 mg PO DAILY 09/05/23 09/06/23 History New Prescriptions to Start Prescriptions: Allergies Allergy/AdvReac Type Severity Reaction Status Date / Time codeine Allergy Mild Verified 11/25/17 16:02 Discharge Plan Disposition Patient Disposition: Home, Self-Care Condition: Fair Discharge Order Discharge Orders: Discharge Order (Routine); Ordered 09/07/23 Ordered By: Kris Garcia Follow up Plan Follow up with: Niranjan Frazier [Primary Care Provider] - 2 weeks Prescriptions/Medication Reconciliation: Continued omeprazole 20 mg capsule,delayed release(DR/EC) 20 mg PO DAILY buspirone 5 mg tablet 5 mg PO DAILY Patient Comments: TAKE 1 TABLET BY MOUTH ONCE DAILY. metoprolol succinate 50 mg tablet extended release 24 hr 50 mg PO HS Patient Comments: TAKE 1 TABLET BY MOUTH ONCE DAILY. sertraline 100 mg tablet 100 mg PO DAILY Patient Comments: TAKE [address] [facility] [place] ONCE DAILY (DME) FreeStyle Lite Strips Strip MISCELLANEOUS Patient Comments: USE TO TEST BLOOD SUGAR TWICE DAILY. * INSURANCE WILL ONLY PAY FOR #50 TEST STRIPS PER 30 DAYS * magnesium oxide 400 mg (241.3 mg magnesium) tablet 400 mg PO DAILY oseltamivir 75 mg capsule 75 mg PO BID Patient Comments: TAKE 1 CAPSULE BY MOUTH 2 TIMES DAILY FOR 5 DAYS. aspirin 81 mg tablet,chewable 81 mg PO DAILY Patient Comments: CHEW AND SWALLOW 1 TABLET BY MOUTH ONCE DAILY. warfarin 1 mg tablet 1 mg PO DAILY Patient Comments: TAKE 16 MG (1.5 TABLETS OF 10 MG TABS + 1 1 MG TABS ONCE DAILY). rosuvastatin 20 mg tablet 20 mg PO HS Patient Comments: TAKE 1 TABLET BY MOUTH ONCE DAILY. warfarin 10 mg tablet 15 mg PO DAILY Patient Comments: TAKE 16 MG (1.5 TABLETS OF 10 MG TABS + 1 MG TABS ONCE DAILY) Rx Instructions: pt takes 1.5 tablets of warfain 10mg plus 1 tablet of warfarin 1 mg Xigduo XR 5-1,000 mg tablet, IR - ER, biphasic 24hr 2 tab PO DAILY Patient Comments: TAKE 2 TABLETS BY MOUTH DAILY. insulin glargine 100 unit/mL (3 mL) insulin pen 30 unit SQ BID Patient Comments: SUBCUTANEOUS (INJECT UNDER THE SKIN) 30 UNITS 2 TIMES DAILY. Problem Reconciliation Problems Reviewed?: Yes Patient Discharge Instructions ACTIVITY: Ambulate as tolerated DIET: continue same diet and diabetic diet Stand Alone Forms: [facility] Work Release Patient Instructions: Diabetic Ketoacidosis, DI for Diabetic Ketoacidosis Providers Primary Care Provider: Niranjan Frazier Admit Provider: Kris Garcia Attending Provider: Kris Garcia
[2023-09-07] MEDS: WARFARIN 5MG TABLET 10 MG PO (10:12)
--- NOTE | 2023-09-09 14:19 | CARE MANAGER ---
Contacted patient's mother related to hospital discharge. She states patient is currently in [facility]. PATSY Kim
== END 2023-09-07 10:19 | disposition home or self-care (01) ==
LOC: ER 12:30 → 2ND 13:30
PROVIDERS: Nurse Practitioner Critical Care Medicine; Admitting Provider Internal Medicine; Emergency Provider Emergency Medicine; PCP Pediatrics; Visit Provider Internal Medicine
DX: E11.10 Type 2 diabetes mellitus with ketoacidosis without coma (principal); Z95.2 Presence of prosthetic heart valve; R79.1 Abnormal coagulation profile; J11.1 Influenza due to unidentified influenza virus with other respiratory manifestations; R55 Syncope and collapse
CPT/HCPCS: 36415; 71045; 71275; 80048; 80053; 82009; 82803; 82962; 83605; 83615; 83880; 84436; 84443; 84484; 84550; 85025; 85378; 85610; 87040; 87636; 93005; 93306; 99291; G0378; J0456; Q9967